=== PATIENT | male | born 1945 | race Caucasian/White ===

== ENCOUNTER 2021-04-18 06:59 | Day surgery (SDC) | payer MEDICARE, OTHER ==
[~2021-04-18] VITALS: Ht 172.7 cm; Wt 89.4 kg
[2021-04-18] MEDS ORDERED: METFORMIN PO (08:35)
[2021-04-18] MEDS ORDERED: POTASSIUM PO (08:36)
[2021-04-18] MEDS ORDERED: JARDIANCE PO (08:36)
[2021-04-18] MEDS ORDERED: K-TAB20 PO (08:43)
[2021-04-18] MEDS ORDERED: GLUCOPHAGE XR500 M1 PO (08:43)
[2021-04-18] MEDS ORDERED: JARDIANCE25 PO (08:44)
[2021-04-18] MEDS ORDERED: LOSARTAN POTASSIUM/H PO (08:47)
[2021-04-18] MEDS ORDERED: REVATIO20 MG PO (08:48)
[2021-04-18] MEDS ORDERED: PROSCAR 5MG5 MG PO (08:48)
[2021-04-18] MEDS ORDERED: OMEGA-3 1000 MG1 CAP PO (08:49)
[2021-04-18] MEDS ORDERED: GARLIC PO (08:50)
[2021-04-18 09:21] VITALS: BP 153/90; PULSE 74; TEMP 98.1
--- NOTE | 2021-04-18 10:01 | NUR ---
requested ice water. The RN provided her with a cup and told her the patient could not have any. Rita, the and the patient verbalized understanding.
[2021-04-18] MEDS ORDERED: ASPIRIN E.C. 8181 MG PO (11:25)
[2021-04-18] MEDS ORDERED: NORVASC 5MG5 MG/TAB PO (11:25)
[2021-04-18] MEDS ORDERED: PROAIR HFA0.09 MG/AC IH (11:25)
[2021-04-18] MEDS ORDERED: COREG12.5 MG PO (11:26)
[2021-04-18] MEDS ORDERED: COREG 6.256.25 MG/TA PO (11:26)
[2021-04-18] MEDS ORDERED: ADCIRCA20 MG PO (11:26)
[2021-04-18] MEDS ORDERED: LAMISIL250 M1 (11:27)
[2021-04-18] MEDS ORDERED: NORCO 325 MG-51 TAB PO (14:24)
[2021-04-18 14:55] VITALS: BP 137/79; PULSE 66; TEMP 97.1
[2021-04-18 15:10] VITALS: BP 141/77; PULSE 62
[2021-04-18 15:25] VITALS: BP 139/77; PULSE 60
[2021-04-18 15:45] VITALS: BP 146/78; PULSE 65
--- NOTE | 2021-04-18 16:45 | NUR ---
1455 PT RETURNED TO ROOM VIA CART. ALERT AND ORIENTED. POSTOP VITALS STARTED. AXILLARY OPERATIVE SITE DRESSING IS CLEAN AND DRY. BANDAGE OVER OPERATIVE SITE ON BACK HAS SANGUINEOUS DRAINAGE APPROX 2" X 2". BOARDERS MARKED AND WILL REASSESS. DIET PEPSI AND ICE CREAM PROVIDED. 1510 PT TOLERATING FOOD ANDRINK WELL. VITALS STABLE. DENIES PAIN OR NAUSEA. 1545 PT UP TO RESTROOM, ABLE TO VOID WITHOUT DIFFICULTY. BACK OPERATIVE SITE BANDAGE NOW HAS SANGUINEOUS DRAINAGE COVERING 2" X 4" AREA OF BANDAGE. NOT ABLE TO OBSEREVE ANY ACTIVE BLEEDING. [address] ALCANTARA. ORDERS TO REMOVE DRESSING AND APPLY DOUBLE GAZE AND TAPE TO CREAT PRESSURE. 1625 REDRESS OPERATIVE SITE WITH 4 X 4 AND TAPE. EDUCATED PT AND ON SURGICAL SITE CARE, TO WATCH FOR CONTINUED DRAINAGE AND CALL DR. CARRENO OFFICE IF DRAINAGE CONTINUES. ALLOW PT TO DRESS. 1645 TRANSFERED PT VIA WHEEL CHAIR TO PERSONAL VEHICLE TO BE DRIVEN BY .
== END 2021-04-18 16:45 | disposition home or self-care (01) ==
LOC: SDCO 06:59
DX: D03.59 Melanoma in situ of other part of trunk (principal); C77.3 Secondary and unspecified malignant neoplasm of axilla and upper limb lymph nodes; I10 Essential (primary) hypertension; E11.9 Type 2 diabetes mellitus without complications; E78.5 Hyperlipidemia, unspecified; J45.909 Unspecified asthma, uncomplicated; N40.0 Benign prostatic hyperplasia without lower urinary tract symptoms; E88.81 Metabolic syndrome and other insulin resistance; E66.9 Obesity, unspecified; Z79.84 Long term (current) use of oral hypoglycemic drugs; Z79.899 Other long term (current) drug therapy; Z79.82 Long term (current) use of aspirin
CPT/HCPCS: A9520; J0330; J0690; J2704; J3010; J7120

== ENCOUNTER 2022-08-04 08:51 | Emergency (ER) | payer MEDICARE, OTHER ==
[~2022-08-04] VITALS: Ht 172.7 cm; Wt 77.3 kg
[~2022-08-04 08:51] MED LIST: ADCIRCA20 MG PO; ASPIRIN E.C. 8181 MG PO; COREG 6.256.25 MG/TA PO; COREG12.5 MG PO; GARLIC PO; GLUCOPHAGE XR500 M1 PO; JARDIANCE PO; JARDIANCE25 PO; K-TAB20 PO; LAMISIL250 M1; LOSARTAN POTASSIUM/H PO; METFORMIN PO; NORCO 325 MG-51 TAB PO; NORVASC 5MG5 MG/TAB PO; OMEGA-3 1000 MG1 CAP PO; POTASSIUM PO; PROAIR HFA0.09 MG/AC IH; PROSCAR 5MG5 MG PO; REVATIO20 MG PO
[2022-08-04 09:18] LABS: HEMATOCRIT 49.2 % (42.0-52.0); HEMOGLOBIN 16.7 g/dl (13.5-18.0); MEAN CELL VOLUME 88 fl (80.0-100.0); MEAN CORPUSCULAR HEMOGLOBIN 30 pg (27-31); MEAN CORPUSCULAR HGB CONC 34 g/dl (33.0-37.0); MEAN PLATELET VOLUME 10.7 fl (7.4-10.4); PLATELET COUNT 191 K/mm3 (130-400); RED BLOOD COUNT 5.57 M/mm3 (4.20-5.60); REDCELL DISTRIBUTION WIDTH-CV 14.3 % (11.5-14.5)
[2022-08-04 09:35] LABS: ALBUMIN 3.6 gm/dL (3.4-4.8); BILIRUBIN,TOTAL 1.9 mg/dL (0.2-1.2); CALCIUM 9.6 mg/dL (8.4-10.2); CREATININE, serum 0.97 mg/dL (0.72-1.25); POTASSIUM 3.5 mmol/L (3.5-4.5); TOTAL PROTEIN 7.6 gm/dL (6.2-8.1)
[2022-08-04 09:37] LABS: BAND 11 % (0-10); LYMPHOCYTE 2 % (20.0-51.0); NEUTROPHILS 81 % (42.0-75.2)
[2022-08-04 09:38] LABS: PLATELET ESTIMATE NORMAL (NORMAL)
[2022-08-04] MEDS ORDERED: BACTRIM DS 8001 TAB PO ×3 (11:56→13:53)
[2022-08-04 14:10] VITALS: BP 140/85; PULSE 94; TEMP 97.5
== END 2022-08-04 12:50 | disposition home or self-care (01) ==
LOC: COL.ER 08:51
PROVIDERS: Emergency Medicine
DX: E89.822 Postprocedural seroma of an endocrine system organ or structure following an endocrine system procedure (principal); G89.18 Other acute postprocedural pain; D72.829 Elevated white blood cell count, unspecified; Z88.0 Allergy status to penicillin; Z90.89 Acquired absence of other organs; Z28.311 Partially vaccinated for COVID-19
CPT/HCPCS: J1100; J2270; J3370; J7050; Q9967